=== PATIENT | male | born 2000 | race Caucasian/White ===

== ENCOUNTER 2019-06-15 22:43 | Emergency (ER) | payer OTHER ==
--- NOTE | 2019-06-15 23:08 | ED ---
Syncope/Near Syncope - HPI Summary HPI Summary: Patient complains of syncopal episode this evening after smoking some marijuana with subsequent fall and head injury when his head hit a metal structure. Patient presents with large laceration to top of head, mild headache. States he had some blurry vision initially which has since resolved. Denies N/V, imbalance, neurological deficits, CP, SOB, fever, cough, sore throat, CP, SOB, N /V/D, abdominal pain, change in urine, change in BM.. Also states he had episode of lightheadedness again while in the waiting room. Denies any other pain, injury or symptoms. States history of syncope when he was in sixth grade and diagnosed with vasovagal syncope. Denies history of syncope since. - History Of Current Complaint Chief Complaint: EDLacSutureRecheck Time Seen by Provider: 06/15/19 23:07 Hx Obtained From: Patient Onset/Duration: Gradual Onset, Lasting Weeks Timing: Constant Context: Witnessed Associated Head Trauma: Yes Aggravating Factor(s): Other Alleviating Factor(s): Spontaneous Resolution Associated Signs And Symptoms: Head Trauma (Recent), Headache, Lightheadedness - Allergies/Home Medications Allergies/Adverse Reactions: Allergies Allergy/AdvReac Type Severity Reaction Status Date / Time No Known Allergies Allergy Verified 06/15/19 22:51 Home Medications: Home Medications NK [No Home Medications Reported] 06/16/19 [History Confirmed 06/16/19] PMH/Surg Hx/FS Hx/Imm Hx Endocrine/Hematology History: Denies: Hx Anticoagulant Therapy Cardiovascular History: Denies: Hx Pacemaker/ICD Respiratory History: Denies: Hx Chronic Obstructive Pulmonary Disease (COPD) History: Denies: Hx Dialysis Sensory History: Denies: Hx Eye Prosthesis Opthamlomology History: Denies: Hx Legally Blind EENT History: Denies: Hx Deafness Infectious Disease History: No Infectious Disease History: Denies: Traveled Outside the [place] in Last 30 Days - Family History Known Family History: Positive: Non-Contributory - Social History Alcohol Use: Occasionally Substance Use Type: Reports: Marijuana Smoking Status (MU): Never Smoked Tobacco Review of Systems Constitutional: Negative Positive: Blurred Vision ENT: Negative Cardiovascular: Negative Respiratory: Negative Gastrointestinal: Negative Genitourinary: Negative Musculoskeletal: Negative Skin: Negative Positive: Headache, Syncope Psychological: Normal All Other Systems Reviewed And Are Negative: Yes Physical Exam - Summary Physical Exam Summary: Large laceration on superior skull. No evidence of trauma to mouth or face. No pain with palpation of facial bones. Full range of motion of neck and jaw. Neuro exam normal. Triage Information Reviewed: Yes Vital Signs On Initial Exam: Initial Vitals Temp Pulse Resp BP Pulse Ox 98.3 F 71 20 105/42 100 06/15/19 22:45 06/15/19 22:45 06/15/19 22:45 06/15/19 22:45 06/15/19 22:45 Vital Signs Reviewed: Yes Appearance: Positive: Well-Appearing Skin: Positive: Warm Head/Face: Positive: Normal Head/Face Inspection Eyes: Positive: Normal ENT: Positive: Normal ENT inspection Dental: Negative: Dental Fracture @, Bleeding Neck: Positive: Supple Respiratory/Lung Sounds: Positive: Clear to Auscultation Cardiovascular: Positive: Normal Abdomen Description: Positive: Nontender Musculoskeletal: Positive: Normal Neurological: Positive: Normal Psychiatric: Positive: Normal AVPU Assessment: Alert - [place] Coma Scale Best Eye Response: 4 - Spontaneous Best Motor Response: 6 - Obeys Commands Best Verbal Response: 5 - Oriented Coma Scale Total: 15 Procedures - Sedation Patient Received Moderate/Deep Sedation with Procedure: No Diagnostics - Vital Signs Vital Signs Temp Pulse Resp BP Pulse Ox 06/15/19 22:45 98.3 F 71 20 105/42 100 - Laboratory Result Diagrams: 06/15/19 23:50 06/15/19 23:50 Lab Statement: Any lab studies that have been ordered have been reviewed, and results considered in the medical decision making process. Course/Dx Course Of Treatment: Patient complains of syncopal episode this evening after smoking some marijuana with subsequent fall and head injury when his head hit a metal structure. Patient presents with large laceration to top of head, mild headache. States he had some blurry vision initially which has since resolved. Denies N/V, imbalance, neurological deficits, CP, SOB, fever, cough, sore throat, CP, SOB, N/V/D, abdominal pain, change in urine, change in BM.. Also states he had episode of lightheadedness again while in the waiting room. Denies any other pain, injury or symptoms. States history of syncope when he was in sixth grade and diagnosed with vasovagal syncope. Denies history of syncope since. Vital signs within normal limits. Elevated LFTs. Labs otherwise unremarkable. CT brain negative. EKG sinus rhythm, heart rate of 71 , normal P axis. No prior on file. - Diagnoses Provider Diagnoses: Syncope, Head injury, Laceration Discharge ED - Sign-Out/Discharge Documenting (check all that apply): Patient Departure - Discharge Plan Condition: Stable Disposition: HOME Patient Education Materials: Laceration (ED), Syncope (ED), Head Injury (ED), Lightheadedness (ED), Staple Care (ED) Referrals: Replaced By [facility] [Primary Care Provider] - Additional Instructions: Otley out in 10 days. This can be done at the [place] [facility], urgent care or here back at the ED. Starting tomorrow they may shower with warm running water and soap. Do not submerge head under water for a few days. Be careful driving or operating machinery. Follow-up with primary care or c4 planner for further evaluation of episodes of lightheadedness and passing out. Return to the ED for any new or worsening symptoms. - Billing Disposition and Condition Condition: STABLE Disposition: Home
[2019-06-15 23:56] LABS: Hematocrit 43 % (42-52); Hemoglobin 14.5 g/dL (14.0-18.0); Mean Corpuscular HGB Conc 34 g/dL (31-36); Mean Corpuscular Hemoglobin 30 pg (27-31); Mean Corpuscular Volume 87 fL (80-94); Mean Platelet Volume 7.8 fL (7.4-10.4); Platelet Count 212 10^3/uL (150-450); Red Cell Distribution Width 13 % (10-15); White Blood Count 7.8 10^3/uL (3.5-10.8)
[2019-06-16 00:17] LABS: Albumin 4.2 g/dL (3.2-5.2); Albumin/Globulin Ratio 1.6 (1-3); BUN/Creatinine Ratio 12.8 (8-20); C Reactive Protein 2.73 mg/L (<8.01); Calcium 9.4 mg/dL (8.6-10.3); EGFR African American 125.1 (>60); EGFR Non-African American 103.4 (>60); Globulin 2.6 g/dL (2-4); Potassium 4.1 mmol/L (3.5-5.0); Total Bilirubin 0.4 mg/dL (0.2-1.0); Total Protein 6.8 g/dL (6.4-8.9)
[2019-06-16 00:35] LABS: ABS Basophils 0.1 10^3/ul (0-0.2); ABS Lymphocytes 3.7 10^3/ul (1.0-4.8); ABS Monocytes 0.6 10^3/ul (0-0.8); ABS Neutrophils 3.5 10^3/ul (1.5-7.7); Eosinophil % 0.2 %; Lymphocyte % 46.6 %; Nucleated Red Blood Cells % 0.3
[2019-06-16 00:38] LABS: TSH (Thyroid Stimulating Horm) 2.97 mcIU/mL (0.34-5.60)
[2019-06-16 01:08] VITALS: BP 117/69
== END 2019-06-16 01:07 | disposition home or self-care (01) ==
LOC: ED 22:43
DX: S01.91XA Laceration without foreign body of unspecified part of head, initial encounter (principal); R55 Syncope and collapse; W19.XXXA Unspecified fall, initial encounter; Y92.9 Unspecified place or not applicable
CPT/HCPCS: 36415; 70450; 80053; 84443; 85025; 86140; 93005; 99282